=== PATIENT | female | born 1960 | race Caucasian/White ===

== ENCOUNTER 2017-10-10 11:40 | Emergency (ER) | payer OTHER ==
[2017-10-10] MEDS ORDERED: NS 1,000 ML IV ONE (12:12)
[2017-10-10] MEDS ORDERED: ONDANSETRON 4 MG/2 ML VIAL IVP ONE (12:12)
--- NOTE | 2017-10-10 12:16 | EDPHY ---
H & P Time Seen by Provider: 10/10/17 11:54 HPI/ROS: HPI Abdominal pain. 57-year-old female by private vehicle. She presents to the emergency department with complaint of periumbilical abdominal pain which woke her last night. She reports the pain comes on in waves. She describes it as sharp and stabbing. She reports through the night it has been migrating to her lower abdomen but she denies is specific isolation of the pain to the right lower quadrant. She has had some nausea but no vomiting. Her last meal was last night. Last bowel movement was earlier this morning. This was normal. No bloody or melenic stool. She has had 2 smaller bowel movements described as normal since that time. No diarrhea. No ill contacts. No previous abdominal surgical history. ROS: Constitutional: No fever, no chills. No weakness. Eyes: No discharge. No changes in vision. ENT: No sore throat. No nasal congestion or rhinorrhea. Respiratory: No cough. No shortness of breath. Cardiac: No chest pain, no palpitations. Gastrointestinal: As above, no vomiting, no diarrhea. Genitourinary: No hematuria. No dysuria or increased frequency with urination. Musculoskeletal: No back pain. No neck pain. No myalgias or arthralgias. Skin: No rashes. Neurological: No headache. No focal weakness or altered sensation. Past medical history: Hyperthyroid. Social history: Nonsmoker. Here by herself. No alcohol. Physical Exam: General Appearance: Alert, no distress. This patient is responding to questions appropriately and in full sentences. This patient appears well- hydrated and well-nourished. Eyes: Pupils equal and round no pallor or injection. No lid edema, erythema or injection. Respiratory: There are no retractions, lungs are clear to auscultation with good air movement bilaterally. Cardiovascular: Regular rate and rhythm. No murmur. Gastrointestinal: Abdomen is soft with vague lower mid abdominal tenderness on palpation, no masses, bowel sounds normal. No focal tenderness at McBurney's point. No Menjivar sign. Neurological: Motor sensory function is grossly intact. Cranial nerves are normal. Gait is normal. Skin: Warm and dry, no rashes. Musculoskeletal: Neck is supple and nontender. Extremities are symmetrical. All joints range without pain or impingement. Psychiatric: No agitation. No depression. Database: EKG: Imaging: CT scan of abdomen and pelvis with IV contrast: Significant for mild to moderate diverticulitis involving the sigmoid colon. No free air abscess noted. Study otherwise negative. Results were discussed with staff radiologist Dr. Evan Arnold. Procedures: Emergency department course: IV placed. Vital signs were reviewed and are normal. She will be given 4 mg of IV Zofran initially. She will be given IV hydromorphone as needed for pain. This will initially be given 0.25 mg doses. She consents for CT imaging to evaluate for possible appendicitis. 1:30 p.m., patient re-evaluated. She is resting comfortably at this time. Repeat abdominal exam she is soft, nontender nondistended. I discussed the results of her CT imaging and diagnosis of diverticulitis. She looks well. I do not feel that she requires admission at this time. She will be started on ciprofloxacin and Flagyl in the emergency department and prescribed these medications for the next 10 days for outpatient treatment. She has been instructed to follow up with her primary care physician in 2-3 days for re- evaluation. She feels comfortable with this plan. Follow-up and return to emergency department precautions were thoroughly reviewed with her. All of her questions were answered. She was discharged from the emergency department in good condition. She has not required any pain medication while here. She declines any stronger pain medication than ibuprofen on discharge. Differential Diagnosis: The differential diagnosis on this patient includes but is not limited to diverticulitis, constipation, appendicitis, cystitis. This represents a partial list of diagnoses considered. These considerations are based on history , physical exam, past history, reassessment and diagnostic testing. Smoking Status: Light smoker Constitutional: Initial Vital Signs Temperature (C) 37.1 C 10/10/17 11:49 Heart Rate 80 10/10/17 11:49 Respiratory Rate 16 10/10/17 11:49 Blood Pressure 113/79 10/10/17 11:49 O2 Sat (%) 93 10/10/17 11:49 O2 Delivery Mode Room Air Allergies/Adverse Reactions: Penicillins Allergy (Verified 10/10/17 11:52) Swelling/neck,face,throat Home Medications: Medication Instructions Recorded Ciprofloxacin [Cipro] 500 mg PO BID #20 tab 10/10/17 metroNIDAZOLE [Flagyl 500 mg (*)] 500 mg PO BID #20 tab 10/10/17 Medical Decision Making - Diagnostics Imaging Results: Imaging Impressions Abdomen CT 10/10/17 12:12 Impression: 1. Moderate diverticulitis sigmoid colon. 2. 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 Results called and discussed with Thomas Tejeda MD on 10/10/2017 at 1321 hours. - Data Points Laboratory Results: Laboratory Results 10/10/17 12:05 10/10/17 12:05 10/10/17 10/10/17 10/10/17 13:32 12:05 12:05 WBC RBC Hgb Hct MCV MCH MCHC RDW Plt Count MPV Neut % (Auto) Lymph % (Auto) [place] % (Auto) Eos % (Auto) Baso % (Auto) Nucleat RBC Rel Count Absolute Neuts (auto) Absolute Lymphs (auto) Absolute Monos (auto) Absolute Eos (auto) Absolute Basos (auto) Absolute Nucleated RBC Immature Gran % Immature Gran # Sodium 140 mEq/L mEq/L (135-145) Potassium 3.5 mEq/L mEq/L (3.3-5.0) Chloride 103 mEq/L mEq/L (97-110) Carbon Dioxide 24 mEq/l mEq/l (22-31) Anion Gap 13 mEq/L mEq/L (8-16) BUN 8 mg/dL mg/dL (7-23) Creatinine 0.7 mg/dL mg/dL (0.6-1.0) Estimated GFR > 60 Glucose 93 mg/dL mg/dL (70-100) Calcium 9.3 mg/dL mg/dL (8.5-10.4) Beta HCG, Qual NEGATIVE Urine Color YELLOW Urine Appearance CLEAR Urine pH 5.0 (5.0-7.5) Ur Specific [place] <= 1.005 (1.002-1.030) Urine Protein NEGATIVE (NEGATIVE) Urine Ketones 1+ H (NEGATIVE) Urine Blood 1+ H (NEGATIVE) Urine Nitrate NEGATIVE (NEGATIVE) Urine Bilirubin NEGATIVE (NEGATIVE) Urine Urobilinogen 0.2 EU EU (0.2-1.0) Ur Leukocyte Esterase NEGATIVE (NEGATIVE) Urine RBC 0-1 /hpf /hpf (0-3) Urine WBC 0-1 /hpf /hpf (0-3) Ur Epithelial Cells TRACE /lpf /lpf (NONE-1+) Urine Mucus TRACE /lpf /lpf (NONE-1+) Urine Glucose NEGATIVE (NEGATIVE) 10/10/17 12:05 WBC 12.19 10^3/uL H 10^3/uL (3.80-9.50) RBC 4.77 10^6/uL 10^6/uL (4.18-5.33) Hgb 13.9 g/dL g/dL (12.6-16.3) Hct 41.1 % % (38.0-47.0) MCV 86.2 fL fL (81.5-99.8) MCH 29.1 pg pg (27.9-34.1) MCHC 33.8 g/dL g/dL (32.4-36.7) RDW 12.6 % % (11.5-15.2) Plt Count 203 10^3/uL 10^3/uL (150-400) MPV 9.4 fL fL (8.7-11.7) Neut % (Auto) 83.5 % H % (39.3-74.2) Lymph % (Auto) 8.5 % L % (15.0-45.0) [place] % (Auto) 6.9 % % (4.5-13.0) Eos % (Auto) 0.4 % L % (0.6-7.6) Baso % (Auto) 0.3 % % (0.3-1.7) Nucleat RBC Rel Count 0.0 % % (0.0-0.2) Absolute Neuts (auto) 10.17 10^3/uL H 10^3/uL (1.70-6.50) Absolute Lymphs (auto) 1.04 10^3/uL 10^3/uL (1.00-3.00) Absolute Monos (auto) 0.84 10^3/uL H 10^3/uL (0.30-0.80) Absolute Eos (auto) 0.05 10^3/uL 10^3/uL (0.03-0.40) Absolute Basos (auto) 0.04 10^3/uL 10^3/uL (0.02-0.10) Absolute Nucleated RBC 0.00 10^3/uL 10^3/uL (0-0.01) Immature Gran % 0.4 % % (0.0-1.1) Immature Gran # 0.05 10^3/uL 10^3/uL (0.00-0.10) Sodium Potassium Chloride Carbon Dioxide Anion Gap BUN Creatinine Estimated GFR Glucose Calcium Beta HCG, Qual Urine Color Urine Appearance Urine pH Ur Specific [place] Urine Protein Urine Ketones Urine Blood Urine Nitrate Urine Bilirubin Urine Urobilinogen Ur Leukocyte Esterase Urine RBC Urine WBC Ur Epithelial Cells Urine Mucus Urine Glucose Medications Given: Discontinued Medications Ciprofloxacin (Cipro) 500 mg PO EDNOW ONE PRN Reason: Protocol Stop: 10/10/17 13:34 Last Admin: 10/10/17 13:49 Dose: 500 mg Sodium Chloride (Ns) 1,000 mls @ 0 mls/hr IV EDNOW ONE; Wide Open PRN Reason: Protocol Stop: 10/10/17 12:13 Last Admin: 10/10/17 12:20 Dose: 1,000 mls Metronidazole (Flagyl) 500 mg PO EDNOW ONE PRN Reason: Protocol Stop: 10/10/17 13:34 Last Admin: 10/10/17 13:49 Dose: 500 mg Ondansetron HCl (Zofran) 4 mg IVP EDNOW ONE Stop: 10/10/17 12:13 Last Admin: 10/10/17 12:20 Dose: 4 mg Departure - Departure Disposition: Home, Routine, Self-Care Clinical Impression: Lower abdominal pain, Diverticulitis Condition: Good Instructions: Ciprofloxacin (By mouth), Metronidazole (By mouth), Diverticulitis (ED), Diverticulitis Diet (ED) Additional Instructions: Read and follow provided instructions. Follow-up with your primary care physician in 2-3 days for re-evaluation. Take antibiotics as prescribed through entire course of treatment. Ibuprofen dosin mg every 6 hours with meals for the next 3 days only. Take only as needed for pain. Return to the emergency department for worsening pain, fever, blood in her stool , vomiting or other serious concerns. Referrals: Patricia Lozano MD [Primary Care Provider] - As per Instructions Prescriptions: Ciprofloxacin [Cipro] 500 mg PO BID #20 tab metroNIDAZOLE [Flagyl 500 mg (*)] 500 mg PO BID #20 tab
[2017-10-10 12:22] LABS: PLATELET COUNT 203 10^3/uL (150-400)
[2017-10-10] MEDS ORDERED: IOPAMIDOL (ISOVUE-300) 100 ML BTL ONE (12:33)
[2017-10-10] MEDS ORDERED: metroNIDAZOLE 500 MG TAB PO ONE (13:33)
[2017-10-10] MEDS ORDERED: CIPROFLOXACIN 500 MG TAB PO ONE (13:33)
[2017-10-10 13:58] VITALS: BP 121/67
== END 2017-10-10 14:00 | disposition home or self-care (01) ==
LOC: CED 11:40
DX: K57.92 Diverticulitis of intestine, part unspecified, without perforation or abscess without bleeding (principal); E86.9 Volume depletion, unspecified; F17.200 Nicotine dependence, unspecified, uncomplicated
CPT/HCPCS: 74177-PO; 80048-PO; 81003-PO; 81015-PO; 84703-PO; 85025-PO; 96374; J2405; Q9967